=== PATIENT | female | born 1965 | race Caucasian/White ===

== ENCOUNTER 2018-10-25 13:42 | Emergency (ER) | payer SELFPAY ==
--- NOTE | 2018-10-25 14:22 | EDM.PDOC ---
ED HPI GENERAL MEDICAL PROBLEM - General Chief Complaint: Lower Extremity Injury/Pain Stated Complaint: INJURED WRIST AND LEG Time Seen by Provider: 10/25/18 13:53 - History of Present Illness INITIAL COMMENTS - FREE TEXT/NARRATIVE: HISTORY AND PHYSICAL: History of present illness: Patient is a 53-year-old white female with prior injuries to her left wrist and foot that had a fall reinjuring them she was already in a splint patient denies any head or neck pain or trauma or other concern. Review of systems: As per history of present illness and below otherwise all systems reviewed and negative. Past medical history: As per history of present illness and as reviewed below otherwise noncontributory. Surgical history: As per history of present illness and as reviewed below otherwise noncontributory. Social history: No reported history of drug or alcohol abuse. Family history: As per history of present illness and as reviewed below otherwise noncontributory. Physical exam: HEENT: Atraumatic, normocephalic, pupils reactive, negative for conjunctival pallor or scleral icterus, mucous membranes moist, throat clear, neck supple, nontender, trachea midline. Lungs: Clear to auscultation, breath sounds equal bilaterally, chest nontender. Heart: S1S2, regular, negative for clicks, rubs, or JVD. Abdomen: Soft, nondistended, nontender. Negative for masses or hepatosplenomegaly. Negative for costovertebral tenderness. Pelvis: Stable nontender. Genitourinary: Deferred. Rectal: Deferred. Extremities: Left upper extremities without any gross deformity point tenderness CMS neurovascular is unremarkable left lower extremity has some small bruising and swelling over the dorsolateral aspect of her foot no gross deformity CMS neurovascular exam is unremarkable and no other significant findings Neuro: Awake, alert, oriented. Cranial nerves II through XII unremarkable. Cerebellum unremarkable. Motor and sensory unremarkable throughout. Exam nonfocal. Diagnostics: X-ray left wrist and hand x-ray left tib-fib ankle and foot Therapeutics: Reapplication of prior splints Impression: #1 observation status post fall #2 eft hand/wrist injury #3 left lower extremity injury Definitive disposition and diagnosis as appropriate pending reevaluation and review of above. - Related Data Allergies Allergy/AdvReac Type Severity Reaction Status Date / Time aspirin Allergy Hives Verified 10/25/18 14:32 Home Meds: Home Meds . [No Known Home Meds] 10/25/18 [History] Review of Systems - Review of Systems Review Of Systems: ROS reveals no pertinent complaints other than HPI. ED EXAM, GENERAL - Physical Exam Exam: See Below Course - Vital Signs Last Recorded V/S: Last Vital Signs Temp 36.2 C 10/25/18 14:32 Pulse 80 10/25/18 14:32 Resp 20 10/25/18 14:32 BP 87/51 L 10/25/18 14:32 Pulse Ox 96 10/25/18 14:32 Departure - Departure Time of Disposition: 15:40 Disposition: Home, Self-Care 01 Condition: Good Clinical Impression: Encounter for medical screening examination, Lower extremity injury, Upper extremity injury - Discharge Information Instructions: Ankle Sprain, [id number], Wrist Pain, Adult, [id number] Referrals: PCP,Unknown [Primary Care Provider] - Forms: ED Department Discharge Additional Instructions: The following information is given to patients seen in the emergency department who are being discharged to home. This information is to outline your options for follow-up care. We provide all patients seen in our emergency department with a follow-up referral. The need for follow-up, as well as the timing and circumstances, are variable depending upon the specifics of your emergency department visit. If you don't have a primary care physician on staff, we will provide you with a referral. We always advise you to contact your personal physician following an emergency department visit to inform them of the circumstance of the visit and for follow-up with them and/or the need for any referrals to a consulting specialist. The emergency department will also refer you to a specialist when appropriate. This referral assures that you have the opportunity for followup care with a specialist. All of these measure are taken in an effort to provide you with optimal care, which includes your followup. Under all circumstances we always encourage you to contact your private physician who remains a resource for coordinating your care. When calling for followup care, please make the office aware that this follow-up is from your recent emergency room visit. If for any reason you are refused follow-up, please contact the [facility] emergency department at and asked to speak to the emergency department charge nurse. Alternate tylenol and motrin as needed for pain. Ice and elevate areas of discomfort as needed.
--- NOTE | 2018-10-25 15:03 | CR ---
Indication: Fall. Technique: Two views of the left lower leg were obtained. Comparison: None Findings: No acute fracture or subluxation is identified. The joint spaces are well maintained. Impression: No acute fracture. Dictated by Yin Gaitan MD @ Oct 25 2018 3:01PM Signed by Dr. Yin Gaitan @ Oct 25 2018 3:01PM
--- NOTE | 2018-10-25 15:03 | CR ---
Indication: Fall. Technique: Two views of the left wrist were obtained. Comparison: None Findings: Degenerative changes are identified bilaterally. No acute fracture or subluxation is identified. Impression: No acute fracture. Dictated by Yin Gaitan MD @ Oct 25 2018 3:01PM Signed by Dr. Yin Gaitan @ Oct 25 2018 3:01PM
--- NOTE | 2018-10-25 15:05 | CR ---
Indication: Fall. Technique: Three views of the left ankle were obtained. Comparison: None Findings: Degenerative changes of the left ankle are identified. The ankle mortise is intact. The talar dome is intact. Postoperative changes of the 1st metatarsal are identified up. There does appear to be a fracture of the 1st metatarsal, of uncertain significance and chronicity. Impression: Degenerative change of the left ankle. Postoperative change of the 1st metatarsal with probable fracture of the 1st metatarsal. This is incompletely evaluated on this study. Dictated by Yin Gaitan MD @ Oct 25 2018 3:03PM Signed by Dr. Yin Gaitan @ Oct 25 2018 3:04PM
--- NOTE | 2018-10-25 15:07 | CR ---
Indication: Fall. Technique: Two views of the left foot were obtained. Comparison: None Findings: Postoperative changes of the 1st metatarsal identified. On the lateral view, linear lucency is identified adjacent to the hardware. On the ankle film, I thought this was of the 1st metatarsal. It the fracture is actually of the mid-diaphysis of the 2nd metatarsal. Callus formation is identified in this region. A fracture of the distal aspect of the middle phalanx of the left 3rd toe was identified. Cannot exclude fractures of the parker of the distal phalanges of the 2nd and 3rd toes. Impression: Postoperative change of the 1st metatarsal. Healing fracture of the mid-diaphysis of the 2nd metatarsal. Acute fracture of the distal aspect of the middle phalanx of the left 3rd toe. Cannot exclude fractures of the parker of the distal phalanges of the 2nd and 3rd toes. Dictated by Yin Gaitan MD @ Oct 25 2018 3:04PM Signed by Dr. Yin Gaitan @ Oct 25 2018 3:06PM
--- NOTE | 2018-10-25 15:07 | CR ---
Indication: Follow-up. Technique: Two views of the left hand were obtained. Comparison: None Findings: Mild degenerative changes of the left hand are identified. No acute fracture or subluxation is identified. Impression: No acute fracture. Dictated by Yin Gaitan MD @ Oct 25 2018 3:06PM Signed by Dr. Yin Gaitan @ Oct 25 2018 3:06PM
== END 2018-10-25 15:22 | disposition home or self-care (01) ==
LOC: MW.ED 13:42
DX: S69.92XA Unspecified injury of left wrist, hand and finger(s), initial encounter (principal); S89.92XA Unspecified injury of left lower leg, initial encounter; W19.XXXA Unspecified fall, initial encounter; Z88.8 Allergy status to other drugs, medicaments and biological substances
CPT/HCPCS: 73100-26-LT; 73100-LT; 73120-26-LT; 73120-LT; 73590-26-LT; 73590-LT; 73610-26-LT; 73610-LT; 73620-26-LT; 73620-LT; 99282; 99284